=== PATIENT | male | born 1965 | race Caucasian/White ===

== ENCOUNTER 2019-10-21 11:42 | Inpatient (IN) | payer SELFPAY ==
[~2019-10-21] VITALS: Ht 175.3 cm; Wt 69.5 kg
[2019-10-21 12:12] LABS: BASO # 0.1 (0.0-0.2); BASO % 1.2 % (0.0-2.0); EOS % 0.2 % (0-4.0); GRAN # 1.8 (1.4-6.5); GRAN % 43.3 % (42.2-75.2); HEMATOCRIT 40.8 % (42.0-52.0); HEMOGLOBIN 13.8 g/dl (13.5-18.0); LYMPH # 1.6 (1.2-3.4); LYMPH % 39.6 % (20.0-51.0); MEAN CELL VOLUME 99 fl (80.0-100.0); MEAN CORPUSCULAR HEMOGLOBIN 33 pg (27.0-31.0); MEAN CORPUSCULAR HGB CONC 34 g/dl (33.0-37.0); MEAN PLATELET VOLUME 12.6 fl (7.4-10.4); MONO # 0.7 (0.1-0.6); MONO % 15.7 % (1.7-9.3); PLATELET COUNT 80 K/mm3 (130-400); RED BLOOD COUNT 4.13 M/mm3 (4.20-5.60); REDCELL DISTRIBUTION WIDTH-CV 12.8 % (11.5-14.5)
[2019-10-21 12:46] LABS: ALANINE AMINOTRANSFERASE 167 U/L (4-49); ALBUMIN 3.5 gm/dL (3.5-5.0); ALKALINE PHOSPHATASE 75 U/L (50-136); ANION GAP 5 mmol/L (7-16); AST,SGOT 146 U/L (15-37); BILIRUBIN,TOTAL 0.9 mg/dL (0.0-1.0); BLOOD UREA NITROGEN 22 mg/dL (9-20); CALCIUM 8.8 mg/dL (8.4-10.2); CARBON DIOXIDE 28 mmol/L (22-30); CHLORIDE 106 mmol/L (98-107); CREATININE, serum 0.74 (0.66-1.25); GLUCOSE 94 mg/dL (74-106); SODIUM 139 mmol/L (137-145); TOTAL PROTEIN 7.5 gm/dL (6.4-8.2)
[2019-10-21 12:47] LABS: C-REACTIVE PROTEIN < 0.5 mg/dL (0.0-0.9)
[2019-10-21 13:06] LABS: ERYTHROCYTE SEDIMENTATION RATE 7 mm/hr (0-30)
[2019-10-21 14:23] LABS: CREATINE KINASE 198 U/L (55-170)
[2019-10-21 14:30] LABS: ALCOHOL(ethanol),MEDICAL < 10 mg/dL
[2019-10-21 18:52] VITALS: BP 152/82; PULSE 55; TEMP 97.9
[2019-10-22] VITALS (7 sets, daily range): BP systolic 123–149; BP diastolic 77–88; PULSE 54–79; TEMP 97.6–98
[2019-10-22 03:05] LABS: COLLECTION METHOD CLEAN CATCH
[2019-10-22 03:27] LABS: MUCOUS Present /lpf; PH 6 (5-8); SQUAMOUS EPITHELIAL 0-2 /hpf; TRICYCLIC ANTIDEPRESS URINE NEGATIVE; URINE APPEARANCE Clear; URINE BACTERIA None Seen /hpf; URINE BILIRUBIN Negative (NEGATIVE); URINE BLOOD Negative (NEGATIVE); URINE COLOR Yellow; URINE GLUCOSE Negative (NEGATIVE); URINE KETONE Negative (NEGATIVE); URINE LEUKOCYTE ESTERASE Negative (NEGATIVE); URINE NITRATE Negative (NEGATIVE); URINE PROTEIN(semi-quant) Negative (NEGATIVE); URINE RBC 0-2 /hpf; URINE UROBILINOGEN >=4.0 mg/dL (NEGATIVE)
--- NOTE | 2019-10-22 05:10 | NUR ---
Patient has rested well throughout the night. Noted to be very drowsy and wakes to physical stimuli. Alert and oriented. States pain with touch to bilateral upper arms. Hand soda dry house operator are equal, but patient has a hard time making a fist on both sides. Feels very rigid. Complains of pain to middle of his lower back. States spasm and tingling in bilateral legs. Utilizes urinal at bedside. Urine sample sent to lab for analysis. Patient states, "Are you going to test that for poison? I think someone is trying to poison me." Patient educated that we were checking multiple things in his urine. IVF continue to right forearm. Will continue to monitor.
--- NOTE | 2019-10-22 09:50 | NUR ---
Dr Monk notified of consult.
--- NOTE | 2019-10-22 09:52 | NUR ---
Patient alert and oriented, answers questions appropriately. See assessment. C/o numbness, tingling and inability to contol bilateral hands. Hand residential remodeling subcontractor weak but equal, pulses palpable. C/o numbness and tingling to bilateral feet, pulses palpable. Able to dorsiflex and plantar flex bilateral feet, strength even. C/o generalized weakness, states "I think I might have gotten some poison." No other c/o at this time.
--- NOTE | 2019-10-22 12:27 | NUR ---
Dr Monk here to see patient.
[2019-10-22 13:22] LABS: BASO % 0.9 % (0.0-2.0); EOS # 0.1 (0.0-0.7); EOS % 1.3 % (0-4.0); GRAN # 2.5 (1.4-6.5); GRAN % 55.2 % (42.2-75.2); HEMATOCRIT 44.2 % (42.0-52.0); HEMOGLOBIN 14.7 g/dl (13.5-18.0); LYMPH # 1.3 (1.2-3.4); LYMPH % 28.5 % (20.0-51.0); MEAN CELL VOLUME 100 fl (80.0-100.0); MEAN CORPUSCULAR HEMOGLOBIN 33 pg (27.0-31.0); MEAN CORPUSCULAR HGB CONC 33 g/dl (33.0-37.0); MEAN PLATELET VOLUME 13.7 fl (7.4-10.4); MONO # 0.6 (0.1-0.6); MONO % 13.9 % (1.7-9.3); PLATELET COUNT 71 K/mm3 (130-400); RED BLOOD COUNT 4.43 M/mm3 (4.20-5.60); REDCELL DISTRIBUTION WIDTH-CV 12.7 % (11.5-14.5)
[2019-10-22 13:28] LABS: ALBUMIN 3.3 gm/dL (3.5-5.0); BILIRUBIN,TOTAL 0.7 mg/dL (0.0-1.0); CREATININE, serum 0.67 (0.66-1.25); POTASSIUM 3.8 mmol/L (3.4-5.0); TOTAL PROTEIN 7.4 gm/dL (6.4-8.2)
[2019-10-22 13:31] LABS: INR 1.1 (0.8-3.0); PROTHROMBIN TIME 11.8 SECONDS (9.7-12.8)
[2019-10-22 19:20] LABS: HIV 1/2 Antibodies Non-Reactive; HIV-1p24 Antigen Non-Reactive
[2019-10-23 04:00] VITALS: BP 135/91; PULSE 57; TEMP 97.6
--- NOTE | 2019-10-23 04:51 | NUR ---
Patient has been restless this shift. Complains of back pain. PRN Tylenol administered with no relief. Heat pack to back and he states this has been most helpful. Verbalizes his frustration with not being able to move and being too weak to get things on his bedside table. Patient noted to be very weak and calls to request change in position every 30 minutes. Assist x2 staff required. The heat pack has helped patient settle that he goes a couple hours in between calling for repositioning. Continues to complain of a tingling sensation over entire body. Patient was able to eat his dinner slowly, but independently. Will continue to monitor patient.
[2019-10-23 08:09] LABS: ALBUMIN 3.2 gm/dL (3.5-5.0); BILIRUBIN,TOTAL 0.8 mg/dL (0.0-1.0); CALCIUM 8.3 mg/dL (8.4-10.2); CREATININE, serum 0.66 (0.66-1.25); TOTAL PROTEIN 7.3 gm/dL (6.4-8.2)
[2019-10-23 08:13] LABS: BASO % 0.9 % (0.0-2.0); EOS % 0.6 % (0-4.0); GRAN # 2.9 (1.4-6.5); GRAN % 61.4 % (42.2-75.2); HEMATOCRIT 45.3 % (42.0-52.0); HEMOGLOBIN 15.2 g/dl (13.5-18.0); LYMPH # 1.2 (1.2-3.4); LYMPH % 25.6 % (20.0-51.0); MEAN CELL VOLUME 98 fl (80.0-100.0); MEAN CORPUSCULAR HEMOGLOBIN 33 pg (27.0-31.0); MEAN CORPUSCULAR HGB CONC 34 g/dl (33.0-37.0); MEAN PLATELET VOLUME 13.4 fl (7.4-10.4); MONO # 0.5 (0.1-0.6); MONO % 11.3 % (1.7-9.3); PLATELET COUNT 77 K/mm3 (130-400); RED BLOOD COUNT 4.63 M/mm3 (4.20-5.60); REDCELL DISTRIBUTION WIDTH-CV 12.7 % (11.5-14.5)
[2019-10-23 08:14] VITALS: BP 123/87; PULSE 62; TEMP 97.7
--- NOTE | 2019-10-23 09:55 | NUR ---
Patient alert and oriented, answers questions appropriately. See assessment. C/o bilateral upper extremity weakness, pulses palpable. Hand keno manager equal but weak, able to manipulate silverware for eating. C/o BLE weakeness, pulses palpable. Plantar and dorsiflexion present and strong. Assist x2 for transfers. Able to move self in bed. C/o neck and mid back pain. No other c/o at this time.
--- NOTE | 2019-10-23 11:12 | NUR ---
SW met with patient to complete intake. Patient provides that he lives in [place], [place] with is sister Kaelyn Agosto [phone]. Patient states that he did not utilize a walker before entering the hospital, but has had to use one since being here, he also states that he did not need any assistance with ADL's previously, and does not know if he will need any assistance when he discharges. Patient states that he does not have a PCP at this time. Patient appointed sister Kaelyn Agosto has DPOA-HC. SW presented documentation for DPOA-HC, it was reviewed, explained in detail, signed by patient, witnessed signature by hospital staff, copies provided to patient and original document placed in chart. Patient states that he does not know if he will need any assistance at this time when dcing back to his sisters home. SW provided information that SW staff is here to assist with any needs upon dc and will assist in setting up services if needed. SW will continue to follow.
[2019-10-23 12:00] VITALS: BP 131/78; PULSE 51; TEMP 98.4
--- NOTE | 2019-10-23 13:55 | NUR ---
Dr Monk here to see patient.
--- NOTE | 2019-10-23 15:56 | NUR ---
FVC 3.22 3.50 4.69 good patient effort
[2019-10-23 16:21] VITALS: BP 139/84; PULSE 51; TEMP 98.7
[2019-10-23 20:00] VITALS: BP 136/94; PULSE 70; TEMP 98.3
[2019-10-24] VITALS (10 sets, daily range): BP systolic 118–152; BP diastolic 69–84; PULSE 53–78; TEMP 97.7–98.5
--- NOTE | 2019-10-24 05:00 | NUR ---
Patient continues to present with weakness to all extremities with jerking movements. Patient states a numbness feeling across abdomen and alternates between bilateral arms throughout the night. Patient wanted assistance in getting up to the commode. Noted to sit up on the side of the bed with no assist from staff, however movements were jerky and not very coordinated. Assist from staff x2 for transfers. Able to roll independently in the bed. Utilizes urinal for urination with assist from staff. Unable to feed himself d/t jerky movements. Patient alert and oriented. Complains of pain to back and neck throughout the night. PRN Tylenol administered. Patient has been NPO since midnight in preparation for MRI and spinal tap this morning. Will continue to monitor patient.
[2019-10-24 11:44] LABS: GLUCOSE,CSF 48 mg/dL (40-70)
[2019-10-24 12:14] LABS: TOTAL PROTEIN,CSF 104 mg/dL (15-45)
[2019-10-24 13:35] LABS: CSF APPEARANCE CLEAR; CSF COLOR COLORLESS; CSF RBC 5 /mm3 (0-0)
--- NOTE | 2019-10-24 13:38 | NUR ---
PT PERFORMED VC WITH WRIGHTS SPIROMETER AT THIS TIME. VC=3.54,3.40,3.50 PT WAS SITTING UPRIGHT IN BED AND GAVE GOOD PT EFFORT. NO DISTRESS NOTED. SPO2 98% ON ROOM AIR, HR 61, RR 17.
[2019-10-24 13:40] LABS: CSF POLYMORPHONUCLEAR 0 % (0-6)
[2019-10-24 13:41] LABS: CSF MONONUCLEAR 100 % (70-100)
--- NOTE | 2019-10-24 16:29 | NUR ---
MARIANN received a phone call from Mely, Pe Teacher at [facility]. Mely requested the patient's records. MARIANN faxed the records to Mely.
--- NOTE | 2019-10-24 20:05 | NUR ---
[facility] called at this time for report on pt. Report given to ALEX Hogue. Pt. will be going to Neuro unit room 6. supervisor cell efficiency notified of room.
--- NOTE | 2019-10-24 21:00 | NUR ---
[facility] here at this time. Pt. given 1 oxycodone 5 mg at this time. Paperwork sent with EMS. Pt. transfered to [facility] with 3 assist. Pt. sent to [facility].
[2019-10-25 18:24] LABS: CADMIUM BLOOD 0.7 ng/mL (<5.0); LEAD,SERUM** 4.7 mcg/dL (<5.0); MERCURY,SERUM 3 ng/mL (<10)
[2019-10-26 11:10] LABS: HSV 2 DNA PCR QUAL Not Detected (())
== END 2019-10-24 21:00 | disposition short-term general hospital (02) | DRG 551 ==
LOC: COL.ER 11:42 → JCC 14:42 → SURG 17:09
PROVIDERS: Emergency Medicine; Physician Assistant; Psychiatry & Neurology Neurology
DX: M48.02 Spinal stenosis, cervical region (principal); G82.50 Quadriplegia, unspecified; G95.89 Other specified diseases of spinal cord; F17.210 Nicotine dependence, cigarettes, uncomplicated; M48.061 Spinal stenosis, lumbar region without neurogenic claudication; D69.6 Thrombocytopenia, unspecified; F12.90 Cannabis use, unspecified, uncomplicated; B19.20 Unspecified viral hepatitis C without hepatic coma; J44.9 Chronic obstructive pulmonary disease, unspecified
CPT/HCPCS: 87522; 99232-AI; 99233-AI; 99239; A9585; G0378; J1569; J1885; J2405; J2930; J3010; J7030

== ENCOUNTER 2023-09-11 13:13 | Inpatient (IN) | payer MEDICARE ==
[~2023-09-11] VITALS: Ht 165.1 cm; Wt 74.6 kg
[2023-09-11] MEDS ORDERED: TYLENOL 500MG500 MG PO (14:56)
[2023-09-11] MEDS ORDERED: LIORESAL 1010 MG/TAB PO (14:58)
[2023-09-11] MEDS ORDERED: Polyethylene Glycol 3350 17 GM PDS PO PRN (15:00)
[2023-09-11] MEDS ORDERED: Sennosides/Docusate 8.6-50 MG TAB PO PRN (15:00)
[2023-09-11] MEDS ORDERED: Docusate Sodium 100 MG CAP PO PRN (15:00)
[2023-09-11] MEDS ORDERED: Naloxone 0.4 MG/ML VIAL IV PRN (15:00)
[2023-09-11] MEDS ORDERED: ENTRESTO 49 MG1 EACH PO (15:08)
[2023-09-11] MEDS ORDERED: LIDODERM 5% PATC1 EA TP (15:08)
[2023-09-11] MEDS ORDERED: LASIX 20MG TABL20 MG PO (15:08)
[2023-09-11] MEDS ORDERED: FARXIGA10 PO (15:08)
[2023-09-11] MEDS ORDERED: NEURONTIN300 MG/CAP PO (15:09)
[2023-09-11] MEDS ORDERED: CIALIS20 MG PO (15:10)
[2023-09-11] MEDS ORDERED: PROAIR HFA0.09 MG/AC IH (15:10)
[2023-09-11] MEDS ORDERED: oxyCODONE 5 MG TAB PO PRN ×2 (15:15→15:30)
[2023-09-11] MEDS ORDERED: Albuterol 0.083% Neb Soln 2.5 MG/3 ML UD IH PRN (15:15)
[2023-09-11] MEDS ORDERED: Acetaminophen 500 MG TAB PO SCH (15:15)
[2023-09-11] MEDS ORDERED: oxyCODONE 5 MG TAB PO ONE ×2 (15:30)
[2023-09-11] MEDS ORDERED: Heparin 5,000 UNITS/ML 1 ML VIAL SQ SCH (16:11)
[2023-09-11] MEDS ORDERED: Glucagon 1 MG VIAL IM PRN (16:30)
[2023-09-11] MEDS ORDERED: Dextrose 50% Water 25 GM/50 ML SYRINGE IV PRN (16:30)
[2023-09-11] MEDS ORDERED: Dextrose (Glucose) 15 GM (4 x 3.75 GM) Chewable TABLET PACK PO PRN (16:30)
[2023-09-11] MEDS ORDERED: Baclofen 10 MG TAB PO SCH (17:00)
[2023-09-11] MEDS ORDERED: Gabapentin 300 MG CAP PO SCH (17:00)
[2023-09-11] MEDS ORDERED: Insulin Lispro (HumaLOG) SQ SCH (17:00)
[2023-09-11 18:59] VITALS: BP 122/66; PULSE 61; TEMP 98
[2023-09-11 20:14] VITALS: BP_SYST 122
--- NOTE | 2023-09-11 20:17 | NUR ---
PATIENT IS RESTING IN BED REPORTING PAIN IN NECK 9/10. HE IS EXPRESSING FRUSTRATION OVER HIS PAIN AND IS CONFUSED ABOUT HIS MEDICATION SCHEDULE. RN EDUCATED HIM ON HIS PRN AND SCHEDULED MEDICATIONS, INCLUDING THAT PRN MEDICATIONS ARE ONLY NEEDED AND THAT HIS PRN PAIN MEDICATION CANNOT BE GIVEN UNTIL THE ORDERED AMOUNT OF TIME HAS PASSED. ASSISTED PATIENT WITH REPOSITIONING AND LET HIM KNOW THAT THIS RN WOULD RETURN AT 2100 WITH HIS BEDTIME MEDICATIONS. CALL LIGHT IS WITHIN REACH. BED IS LOCKED AND IN LOW POSITION.
[2023-09-11] MEDS ORDERED: Polyethylene Glycol 3350 17 GM PDS PO SCH (21:00)
[2023-09-11 23:04] VITALS: BP 111/68; PULSE 56; TEMP 98.1
[2023-09-12 05:29] VITALS: BP 128/74; PULSE 58; TEMP 97.7
[2023-09-12 06:35] VITALS: BP_SYST 128
--- NOTE | 2023-09-12 06:35 | NUR ---
Pt sleeping in bed. Call light in reach and bed alarm on.
--- NOTE | 2023-09-12 08:10 | NUR ---
Pt sitting up in chair. Finished breakfast. A&Ox4. VSS. S1S2. Clear lungs on RA. ABD round, soft, non-tender with audible bowel sounds. Palpable pulses in all extremities. Pt reports 9/10 pain in back and neck. Administered pain meds as prescribed. Pt denies headache, dizziness. Pt states he has not had a BM since being here. Educated Pt on side effects of pain meds - constipation. Lidocaine patch placed on incision on back. Pt has skin tear on L shoulder - placed mepilex pad for cushioning from [place] collar. R shoulder has some redness and irritation, but skin intact. Placed mepilex pad for cushioning. Pt denies further needs. Call light in reach and chair alarm on.
[2023-09-12] MEDS ORDERED: Lidocaine 4% Topical Patch TP SCH (09:00)
--- NOTE | 2023-09-12 11:00 | NUR ---
SW met with patient to complete intake. Patients provides he lives in [facility]. Point of contact is son Enrique Moran [phone] and daughter in law Sophia Moran [phone]. Patient states that he does utilize a cane and is independent with ADL's, PCP is Dr. Rios, and pharmacy is [facility]. Patient provides he does not utilize home health services at this time. Patient provides he does not have anyone appointed as DPOA-HC at this time and did not wish to appoint anyone at this time. Patient provides he plans to return to his home upon discharge. SW will continue to follow. Discharge plan: home/PT OT rec to be determined
--- NOTE | 2023-09-12 11:27 | NUR ---
Pt back from group therapy. Pt is drowsy but responds to call commands appropriately. Pt reports pain in neck is 7/10. Pt ambulated to bed with minimal assistance from nurse once standing. Bed alarm on and call light in reach.
--- NOTE | 2023-09-12 12:51 | NUR ---
Data: COMMUNICATIONS EDITOR reported to Agronomy Technician that Patient had been extremely aggitated this morning and using vulgar language. Patient accepted spiritual care visit offered during Agronomy Technician rounds. Patient stated that this is his third neck surgery. He is tired and in Pain. The neck surgeries prevent him from having the more active life he would want to have. Patient accepted prayer. Assessment: Patient is in pain. Patient feels isolated/alone. Plan of Care: Agronomy Technician provided supportive listening and prayer, specifically for pain and isolation. Patient requested "something to wipe my eyes" so Agronomy Technician provided tissues. Agronomy Technician adjusted lighting in room to help Patient to fall to sleep easier. Chaplains will remain available as needed/requested while Patient is admitted to this hospital.
--- NOTE | 2023-09-12 13:20 | NUR ---
Pt ambulated back from restroom to bed. Pt states pain 7/10 in neck/back. Pt stated it is tolerable for now, Pt believes he is going to try to sleep. No further needs. Call light in reach and bed alarm on.
--- NOTE | 2023-09-12 13:45 | NUR ---
Pt called out reporting shortness of breath. Pt laying down upon entering room, in bed. Pt taking shallow breathes. Pt declines pain when breathing. Lungs are clear. Pulse ox: 92%. Pt states felt like something in his throat coughed phlegm up. Pt states better. Pulse ox: 98%. Repositioned Pt in bed. Call light in reach and bed alarm on.
[2023-09-12 18:59] VITALS: BP 126/75; PULSE 63; TEMP 98.1
[2023-09-12 19:56] VITALS: BP_SYST 126
--- NOTE | 2023-09-12 20:36 | NUR ---
PATIENT IS SITTING IN RECLINER WATCHING TV. EXPRESSING FRUSTRATION PERTAINING TO FREQUENCY OF HIS PAIN MEDICATION. REPORTS NECK PAIN 9/10. HE IS REQUESTING TO HAVE HIS LAUNDRY DONE. DENIES ANY NUMBNESS OR TINGLING IN HIS UPPER EXTREMITY, ALSO DENIES ANY DIFFICULTY SWALLOWING OR BREATHING. CALL LIGHT IS WITHIN REACH. CHAIR ALARM ON.
[2023-09-13 05:26] VITALS: BP 132/58; PULSE 80; TEMP 97.9
[2023-09-13 07:19] VITALS: BP_SYST 132
--- NOTE | 2023-09-13 10:11 | NUR ---
PT SITTING UP IN CHAIR, ALERT AND ORIENTEDX4. RATES PAIN 10/10. PT REQUESTED PAIN PILL. AFTER PAIN PILL PAIN IS 7/10. ASSESSED AND GAVE MORNING MEDS. TOOK OFF YESTERDAYS LIDOCAINE PATCH AND PUT NEW ON ONE BACK OF KNECK. ASPEN COLLAR ON WHILE SITTING IN CHAIR. NO OTHER COMPLAINTS AT THIS TIME. CALL LIGHT WITHIN REACH.
[2023-09-13 18:03] VITALS: BP 120/75; PULSE 73; TEMP 97.4
[2023-09-13 19:20] VITALS: BP_SYST 120
--- NOTE | 2023-09-13 20:14 | NUR ---
Pt alert and oriented x4, assisted from recliner to bathroom with gait belt and fww, pt experianced bowel urgency and didnt quite make it to bathroom on time. Miralax held pants and socks changed, rating pain 10/10 in head and neck, pain meds administered per orders. Assessed and all HS meds given, back in header setup operator and says he is comfortable after pillows adjused. Chair alarm engaged, IV to LF patent. Call light within reach.
[2023-09-14 06:00] VITALS: BP 150/86; PULSE 60; TEMP 98.3
[2023-09-14 07:00] VITALS: BP_SYST 150
--- NOTE | 2023-09-14 09:00 | NUR ---
PATIENT A&O X4. VSS. C/O PAIN AND REQUESTED OPIOIDS WHEN DUE AGAIN. EDUCATED ON TIMES OPIOIDS CAN BE GIVEN TODAY. NO C/O N/V. SHIFT ASSESSMENT COMPLETE. REPLACED MEPILEX ON R SHOULDER. COLLAR ON PATIENT. TRANSFERS WITH ASSIST X1 WITH WALKER. FALL PRECAUTIONS IN PLACE. CALL LIGHT AND PERSONAL BELONGINGS WITHIN REACH. NO FURTHER NEEDS AT THIS TIME.
--- NOTE | 2023-09-14 11:33 | NUR ---
PATIENT ALERT AND ORIENTED X4. VSS. PATIENT HERE FOR REHAB S/P CERVICAL FUSION. ASPEN COLLAR ON. PATIENT REPORTS PAIN 9/10, REQUESTS PAIN MEDICATION WHEN DUE FOR PRN MEDS. PATIENT ABLE TO FEED SELF WITH ASSISTANCE. PATIENT ON RA. NO FURTHER NEEDS. CALL LIGHT IN REACH. CHAIR ALARM ON.
--- NOTE | 2023-09-14 14:10 | NUR ---
forming process line worker met with pt to check-in and introduce herself. Pt reports concerns with nursing staff and expressed how he was incontinent many times with no assistance in timely matter and felt disrespected. SW informed him she will discuss with IPR Director Candida who will come check-in with him too. Pt was agreeable to this solution. He reports waiting for the DrNorma to come around to discuss his pain. Pt started to discuss how he uses "street drugs" then SW inquired about this further and if he wanted resources, he then says he uses marijuana and his surgeon approved this. Pt went on to express he would like to discharge home and just needs assistance with his dishes. He reports [facility] list for over 2 years. SW discussed private duty options and he states he cannot afford this and his family all works a lot. He reports being dissatisfied that his neice tried to charge him $30 an hour. Pt did confirm his home is in livable condition and he still maintains it. SW advised they can follow-up on a later date about any other options. Discharge Plan: re-eval
--- NOTE | 2023-09-14 15:22 | NUR ---
Admission QIM scores were reviewed by the team. Code of 2 chosen for toileting hygiene was determined by team discussion to be the most usual performance for this patient during the discharge assessment period.--PD Osman
--- NOTE | 2023-09-14 16:09 | NUR ---
MARIANN called [facility] to see where pt was on the home care program waitlist. MARIANN spoke with Kim who reports pt should have received a letter from [facility] to accept assistance. She could not confirm any other details and advised MARIANN to call [facility]. MARIANN called [facility] [phone] to discuss pt's letter and status as he is in the hospital. Voicemail left.
[2023-09-14 17:09] VITALS: BP 141/79; PULSE 42; TEMP 98.5
[2023-09-14 19:28] VITALS: BP_SYST 141
--- NOTE | 2023-09-14 19:28 | NUR ---
RECEIVED CHANGE OF SHIFT REPORT FROM DAY SHIFT NURSE. PATIENT UP IN CHAIR, ASPEN COLLAR IN PLACE. CALL LIGHT WITHIN PATIENT'S REACH WITH EXIT ALARM ON. NO NEEDS VOICED AT TIME OF REPORT.
--- NOTE | 2023-09-14 22:10 | NUR ---
PATIENT WANTS TO TAKE HS MEDS WITH PAIN MEDICATION NEXT AVAILABLE AT 2230. UP TO BATHROOM WITH X1 ASST WITH WEAK BUT STEADY GAIT. EXIT ALARM ON WHEN BACK TO IN CHAIR, REFUSED TO LAY IN BED REPORTING THAT HE IS UNCOMFORTABLE LAYING IN HOSPITAL BED AT THIS TIME. CALL LIGHT WITHIN PATIENT'S REACH.
--- NOTE | 2023-09-15 01:07 | NUR ---
PATIENT UP IN CHAIR, RESTING WITH EYES CLOSED AND EVEN/NONLABORED BREATHING. DID NOT WAKE DURING NURSE ROUNDING INITIALLY, WHEN AWAKE, REQUESTED PAIN MEDICATION WHEN NEXT AVAILABLE, REQUESTING TO BE WOKEN UP FOR DOSING. EXIT ALARM ON, CALL LIGHT WITHIN PATIENT'S REACH.
--- NOTE | 2023-09-15 02:37 | NUR ---
REQUESTED AND GIVEN PAIN MEDS, SEE MAR FOR MEDICATION GIVEN. NO OTHER NEEDS REPORTED AT THIS TIME.
[2023-09-15 05:09] VITALS: BP 146/72; PULSE 56; TEMP 98.2
--- NOTE | 2023-09-15 07:03 | NUR ---
CHANGE OF SHIFT REPORT GIVEN TO DAY SHIFT NURSEKIERAN. PATIENT UP IN CHAIR, RESTING, EXIT ALARM ON, CALL LIGHT WITHIN PATIENT'S REACH.
[2023-09-15 07:05] VITALS: BP_SYST 146
[2023-09-15] MEDS ORDERED: Lidocaine 5% Ointment 35.44 GM TUBE TP SCH (09:00)
--- NOTE | 2023-09-15 09:49 | NUR ---
PATIENT ALERT AND ORIENTE X4. VSS. PATIENT HERE FOR REHAB R/T S/P NECK FUSION. ASPEN COLLAR APPLIED. INCISIONS CDI. IV DC'D THIS AM. AM MEDS ADMINISTERED. PATIENT REPORTS PAIN 11/02, REQUESTS PRN MEDS WHEN DUE. PATIENT TOLERATING PO. NO FURTHER NEEDS. CALL LIGHT IN REACH CHAIR ALARM ON.
[2023-09-15] MEDS ORDERED: oxyCODONE 5 MG TAB PO SCH (10:30)
[2023-09-15 16:49] VITALS: BP 131/65; PULSE 50; TEMP 98.4
--- NOTE | 2023-09-15 19:09 | NUR ---
RECEIVED CHANGE OF SHIFT REPORT FROM DAY SHIFT NURSE.
[2023-09-15 19:16] VITALS: BP_SYST 131
--- NOTE | 2023-09-16 03:40 | NUR ---
PATIENT CONTINUES ON SCHEDULED OXYCONTIN ORDERED, STILL REPORTS PAIN OF LEVEL 8-9/10 DURING THE NIGHT WHEN PATIENT IS AWAKENED FOR DOSING. PATIENT LAID IN BED FOR PART OF NIGHT REPORTING THAT HE WAS UNCOMFORTABLE DUE TO CONCERNS THAT HIS HEAD WOULD ROLL OFF PILLOW "I USUALLY SLEEPING ON MY SIDE" WHILE ASPEN COLLAR IS OFF. PATIENT UP IN RECLINER CHAIR CURRENTLY AND SLEEPING WHILE SITTING UP IN RECLINER. UP TO BATHROOM INTERMITTANTLY TO VOID. OBSERVED HAS PASSED SEMIFORMED BROWN STOOL OF SMALL AMOUNTS WHEN UP TO VOID, PATIENT STATING THAT HE COULD NOT TELL IF HE HAD PASSED STOOL AT THE TIME. DENIES ABD PAIN/NAUSEA. DENIED CHEST PAIN/SHORTNESS OF BREATH. EXIT ALARM ON WHEN UP IN CHAIR, CALL LIGHT WITHIN PATIENT'S REACH.
[2023-09-16 05:19] VITALS: BP 147/65; PULSE 52; TEMP 98.1
--- NOTE | 2023-09-16 07:16 | NUR ---
CHANGE OF SHIFT REPORT GIVEN TO DAY SHIFT NURSES, OLI.
[2023-09-16 07:45] VITALS: BP_SYST 147
--- NOTE | 2023-09-16 15:31 | NUR ---
medical office worker attended team conference meeting and informed pt will be a re-eval to next week, but he is feeling like he wants to discharge sooner due to having done similar rehab interventions before. Tenative date was set for 09/23 to help assist pt with a goal date. SW was informed pt will need a family meeting scheduled for Thursday or Thursday 9:30a/1pm. SW met with pt to provide team conference notes and see if he was agreeable to the above date. He was agreeable and understood that the DrNorma would like to continue to manage his pain and continue with rehab. SW discussed family meeting for next week. Pt reports his [id number] had surgery & her works 11-7pm. SW encouraged him to talk with them and see if they would be interested. Pt was agreeable to this. SW discussed how she spoke with Robina VARGAS regarding his in home waiver. SW advised she is waiting for the physical digital publishing specialist to call her back further to discuss if the letter of notification was mailed out. Pt was open to MARIANN continually working on this. Pt went on to express concerns with losing his Medicaid and they lost his electronic signature and he is worried about bills from [employer] up. SW inquired if he was open to the financial counselor looking into this. He reports agreement. Pt informs SW he has not had home health before, but is open to it upon discharge. SW contacted financial administration officerJudi to check on pt's Medicaid. MARIANN spoke with Robina VARGAS who advised they will pass a message to the physical digital publishing specialist regarding the status. Discharge Plan: re-eval
[2023-09-16 18:20] LABS: HEMOGLOBIN 10.1 g/dl (13.5-18.0); MEAN CELL VOLUME 102 fl (80.0-100.0); MEAN CORPUSCULAR HEMOGLOBIN 35 pg (27-31); MEAN CORPUSCULAR HGB CONC 35 g/dl (33.0-37.0); MEAN PLATELET VOLUME 12.5 fl (7.4-10.4); PLATELET COUNT 80 K/mm3 (130-400); RED BLOOD COUNT 2.88 M/mm3 (4.20-5.60)
[2023-09-16 18:23] LABS: HEMATOCRIT 29.3 % (42.0-52.0)
[2023-09-16 18:28] VITALS: BP 133/79; PULSE 65; TEMP 98.5
[2023-09-16 18:31] LABS: CALCIUM 8.8 mg/dL (8.4-10.2); CREATININE, serum 0.87 mg/dL (0.72-1.25); POTASSIUM 4.3 mEq/L (3.5-4.5)
[2023-09-16 18:51] LABS: ANISOCYTOSIS 1+; BAND 4 % (0-10); EOSINOPHIL 2 % (0-4); HYPOCHROMIA 1+; LYMPHOCYTE 13 % (20.0-51.0); NEUTROPHILS 56 % (42.0-75.2); PLATELET ESTIMATE DECREASED (NORMAL); POLYCHROMASIA 1+
[2023-09-16 18:52] LABS: STOMATOCYTE 1+; TARGET CELLS 1+
[2023-09-16 19:30] VITALS: BP_SYST 133
--- NOTE | 2023-09-16 19:30 | NUR ---
RECEIVED CHANGE OF SHIFT REPORT FROM DAY SHIFT NURSE.
--- NOTE | 2023-09-16 20:00 | NUR ---
PATIENT UP IN ROOM WITH ASSIST X1 WITH GAIT BELT AND FWW. PATIENT REPORT SOME PAIN CONTROL WITH SCHEDULED OXYCONTIN, TYLENOL AND LIDOCAINE CREAM, REPORTS DOES NOT HAVE LIDOCAINE PATCH ON DUE TO HAVING LIDOCAINE CREAM APPLIED SCHEDULED. DENIES CHEST PAIN/SHORTNESS OF BREATHE/NAUSEA AT THIS TIME. REPORTS HAS HAD BM TODAY, DOES NOT WANT STOOL SOFTENER SCHEDULED AT HS. ASPEN COLLAR IN PLACE/INTACT. OBSERVED DECREASED LEFT HAND DEXTERITY BUT IS ABLE TO USE DRINKING CUP WITH HANDLE, WITH LEFT HAND THUMB AND PARTIAL LEFT HAND GRASP (DUE TO BUE/HAND GRASP WEAKNESS). EXIT ALARMS ON WHEN EITHER IN BED OR UP IN RECLINER CHAIR, PATIENT CURRENTLY RESTING IN BED WITH EYES CLOSED.
[2023-09-16] MEDS ORDERED: Melatonin 3 MG TAB PO SCH (21:00)
--- NOTE | 2023-09-17 00:03 | NUR ---
PATIENT RESTING WITH EYES CLOSED SITTING UP IN RECLINER. BREATHING EVEN AND NONLABORED. REFUSED MIRALAX WITH HS MEDS THIS SHIFT. DENIES CHEST PAIN/SHORTNESS OF AIR/NAUSEA. REPORTED HAD BM TODAY. ASPEN COLLAR IN PLACE. CONTINUES ON ROOM AIR.
[2023-09-17 05:47] VITALS: BP 124/80; PULSE 37; TEMP 98
[2023-09-17 06:45] VITALS: BP_SYST 124
--- NOTE | 2023-09-17 07:15 | NUR ---
0645 - Pt awake, sitting up in chair. Pt does not complain of pain at this time. No other concerns at this time. Call light within reach. Chair alarm set.
--- NOTE | 2023-09-17 09:09 | NUR ---
0815 - Pt awake, sitting up in chair for morning assessment and med pass. Pt complains of pain in neck at this time. Pt states that staff are not "bringing medications on time." This nurse provided education to pt regarding the times of his medications that are scheduled, informing him that according to the MAR, medications have been given appropriately thus far. No other concerns at this time. Call light within reach. Chair alarm set.
--- NOTE | 2023-09-17 10:06 | NUR ---
rigging up worker was informed by financial writerJudi pt does not have active Medicaid. She reports he does had a medicare supplemental plan to aid with premiums. She confirmed she will meet with pt to assist in re-applying for Medicaid. Discharge Plan: re-eval
[2023-09-17] MEDS ORDERED: Pregabalin 150 MG CAP PO SCH (14:00)
[2023-09-17 18:18] VITALS: BP 114/64; PULSE 62; TEMP 98.3
[2023-09-17 19:00] VITALS: BP_SYST 114
--- NOTE | 2023-09-17 20:35 | NUR ---
Patient sitting up in chair very upset. Patient states, "I want to know the names of everyone who has answered the call light because they are all getting reported tomorrow for lying to me." When explaining to patient that I was with another patient who needed my immediate assisstance and was unable to come back to his room any sooner than now, patient stated "I don't give a fuck. I'm leaving this place tomorrow anyway. I don't want to hear any excuses." This nurse appologized for not being able to come to patients room sooner and answer the few questions patient had and expressed that he was not being ignored and that it was just busy at the time. Answered patient question of when he could have his lidocaine cream and other pain meds. Assissted patient in taking medications and finishing ensure. Snack provided. Assessment complete. All needs met at this time. Call light and personal items in reach. Bed in low position and chair alarm on.
--- NOTE | 2023-09-17 23:00 | NUR ---
Offered patient bed bath. Patient accepted. Soaked feet and attempted to get skin off. Patient voiced he was very appreciative of this. Lotion applied to arms, legs, stomach, and back. New blankets and pillow cases provided.
[2023-09-18] MEDS ORDERED: diphenhydrAMINE 25 MG CAP PO PRN (01:45)
[2023-09-18 06:08] VITALS: BP 132/76; PULSE 35; TEMP 97.8
[2023-09-18 06:45] VITALS: BP_SYST 132
--- NOTE | 2023-09-18 07:14 | NUR ---
0645 - Report received. Pt asleep, sitting in chair comfortably. No concerns at this time. Chair alarm set. Call light within reach.
--- NOTE | 2023-09-18 09:39 | NUR ---
0811 - Pt sitting up in chair, eating breakfast at time of assessment and med pass. Assisted pt with eating remainder of meal at this time. Pt stating that he is wanting to leave and "needs a ride" to go home. Pt still cooperating with PT/OT at this time. Pt complains of 7/10 pain, scheduled pain medication administered at this time. Pt sitting up in chair with no facial grimacing, breathing unlabored. Pt states he is concerned about his medication ntresto, wanting to start that back up again. Will update physician during morning rounds. No other concerns at this time. Chair alarm set. Call light within reach.
[2023-09-18] MEDS ORDERED: Baclofen 10 MG TAB PO SCH (17:00)
[2023-09-18 18:26] VITALS: BP 131/80; PULSE 44; TEMP 98
[2023-09-18] MEDS ORDERED: DULoxetine 30 MG CAP PO SCH (21:00)
[2023-09-18] MEDS ORDERED: Sennosides/Docusate 8.6-50 MG TAB PO SCH (21:00)
--- NOTE | 2023-09-18 22:00 | NUR ---
PT A&O X4 SITTING IN CHAIR. VSS. PT REPORTS PAIN TO BACK OF NECK & SHOULDERS 11/02, GIVEN SCHEDULED PAIN MEDS PER APR. ASPEN COLLAR IN PLACE. ANTERIOR & POSTERIOR NECK INCISIONS WELL APPROX, TESSA INTACT TO POSTERIOR. SBA TO RESTROOM. PT DENYING FURTHER NEEDS. CALL LIGHT IN REACH
[2023-09-19 06:23] VITALS: BP 104/68; PULSE 51; TEMP 97.8
--- NOTE | 2023-09-19 06:30 | NUR ---
PT UP IN CHAIR WATCHING TV. RATES PAIN 7/10 THIS MORNING, GAVE SCHEDULED PAIN MEDS PER MAR. DENYING OTHER NEEDS. CALL LIGHTIN REACH
[2023-09-19 07:27] VITALS: BP_SYST 104
[2023-09-19 08:26] LABS: CALCIUM 8.5 mg/dL (8.4-10.2); CREATININE, serum 0.71 mg/dL (0.72-1.25); POTASSIUM 4.3 mEq/L (3.5-4.5)
[2023-09-19 08:29] LABS: HEMOGLOBIN 10.3 g/dl (13.5-18.0); MEAN CELL VOLUME 101 fl (80.0-100.0); MEAN CORPUSCULAR HEMOGLOBIN 34 pg (27-31); MEAN CORPUSCULAR HGB CONC 34 g/dl (33.0-37.0); PLATELET COUNT 99 K/mm3 (130-400); RED BLOOD COUNT 3.03 M/mm3 (4.20-5.60); REDCELL DISTRIBUTION WIDTH-CV 15.8 % (11.5-14.5)
[2023-09-19 08:30] LABS: HEMATOCRIT 30.7 % (42.0-52.0)
[2023-09-19] MEDS ORDERED: Empagliflozin 10 MG TAB PO SCH (09:00)
[2023-09-19] MEDS ORDERED: Dapagliflozin 10 MG **** subs to Empagliflozin 10 MG PO SCH (09:00)
[2023-09-19 09:20] LABS: ANISOCYTOSIS 1+; BAND 1 % (0-10); BASOPHIL 3 % (0-2); EOSINOPHIL 4 % (0-4); HYPOCHROMIA 1+; LYMPHOCYTE 15 % (20.0-51.0); NEUTROPHILS 48 % (42.0-75.2); PLATELET ESTIMATE DECREASED (NORMAL)
[2023-09-19 11:22] VITALS: BP 96/63; PULSE 64
--- NOTE | 2023-09-19 11:27 | NUR ---
Patient BP was soft this morning. It was rechecked for next dose of oxycodone. BP 96/63. Patient educated about the use of pain medications and risk to lower BP more. Pt states "if I do not get my medication I will leave this place". According to recs in EMAR ok to provide if SBP >90. Pain med given.
[2023-09-19 18:00] VITALS: BP 104/66; PULSE 53; TEMP 98.3
[2023-09-19 19:10] VITALS: BP_SYST 104
--- NOTE | 2023-09-19 21:00 | NUR ---
PT A&O X4 UP IN CHAIR. RATING PAIN 7-8/10, PT GETTING SCHEDULED OXYCODONE PER APR. ANTERIOR & POSTERIOR NECK INCISIONS INTACT & WELL APPROXIMATED. ASPEN COLLAR IN PLACE. PT DENYING FURTHER NEEDS. CALL LIGHT IN REACH & CHAIR ALARM ON
[2023-09-20 05:06] VITALS: BP 104/54; PULSE 45; TEMP 97.5
[2023-09-20] MEDS ORDERED: Ondansetron 4 MG TAB PO PRN (05:45)
--- NOTE | 2023-09-20 06:03 | NUR ---
PT STATES PAIN THIS MORNING IS 10, GAVE SCHEDULED PAIN MEDS PER APR. PT UPSET & STATES "IM HAVING ALL THIS PAIN ANDREA THEY WONT GIVE ME MY GABAPENTIN I ALWAYS TAKE AT HOME". PT ALSO COMPLAINING OF NAUSEA, CALLED HOSPITALIST DR ROMERO & NEW ORDER FOR SHILPI WOMACK, GAVE PER APR.
[2023-09-20 07:14] VITALS: BP_SYST 104
--- NOTE | 2023-09-20 08:00 | NUR ---
Pt. sitting up in chair. Pt. is A&OX3, assessment complete. Pt. with aspen collar on at this time. Pt. reports pain at a 10 on pain scale. Gave meds that are order. Pt. denies further needs.
[2023-09-20] MEDS ORDERED: Gabapentin 300 MG CAP PO SCH ×2 (13:00)
[2023-09-20] MEDS ORDERED: Phenylephrine/Mineral Oil/Petrolatum 57 GM TUBE RC PRN (13:00)
--- NOTE | 2023-09-20 14:41 | NUR ---
SW met with patient per his request to answer questions. Patient questioning if HH has been arranged and stating that [facility]'s contacting [facility]. SW informed patient that family meeting is scheduled for next week and these items will be discussed at that time. Patient agreeable to discuss in meeting.
[2023-09-20 18:15] VITALS: BP 108/63; PULSE 90; TEMP 97.4
[2023-09-20 19:00] VITALS: BP_SYST 108
--- NOTE | 2023-09-20 19:29 | NUR ---
RECEIVED CHANGE OF SHIFT REPORT FROM DAY SHIFT NURSE. PATIENT UP IN CHAIR, EXIT ALARM ON, CALL LIGHT WITHIN PATIENT'S REACH.
--- NOTE | 2023-09-20 20:00 | NUR ---
PATIENT UP WITH FWW/GAITBELT AND X1 STAFF ASST WITH AMB TO/FROM BATHROOM BACK TO RECLINER WITH NO REPORTED PROBLEMS OR CONCERNS AT THIS TIME. ON ROOM AIR. OBSERVED RIGHT HAND SUPERVISOR INSPECTION AND TESTING WEAKER THAN LEFT HAND SUPERVISOR INSPECTION AND TESTING. PATIENT ABLE TO PARTIALLY GRASP CUP HANDLES WITH USE OF LEFT HAND THUMB, ABLE TO DRINK INDEPENDENTLY FROM SIP CUP. OBSERVED PATIENT STATING HE CANNOT UNDO HOSP PANTS TIES TO HELP WITH PUSHING PANTS DOWN NOR PULL PANTS UP AFTER PERICARE DONE BY STAFF, STATES HE CANNOT USE HIS LEFT HAND "FOR ANYTHING". DENIES CHEST PAIN/SHORTNESS OF BREATHE/NAUSEA AT THIS TIME. SWALLOWS THIN LIQUIDS WITH NO REPORTED PROBLEMS. RESTING SITTING UP IN CHAIR AT THIS TIME.
--- NOTE | 2023-09-20 21:30 | NUR ---
SEE MAR FOR HEMORRHOIDAL OINTMENT APPLIED. OBSERVED NO BLOOD WITH HEMORRHOID AT THIS TIME. OBSERVED HEMORRHOID SWOLLEN AND PROTRUDING TO RECTUM.
--- NOTE | 2023-09-21 01:11 | NUR ---
OBSERVED BLOOD IN TOILET FROM HEMORRHOID, WITH SWELLING.
[2023-09-21 04:49] VITALS: BP 115/69; PULSE 54; TEMP 97.5
--- NOTE | 2023-09-21 06:07 | NUR ---
OBSERVED BRIGHT RED BLOOD WITH PERICARE AFTER TOILETING/STOOLING WITH APPLICATION OF HEMORRHOID OINTMENT.
--- NOTE | 2023-09-21 06:18 | NUR ---
PATIENT REPORTS NAUSEA, SEE MAR FOR ZOFRAN GIVEN. DENIES ANY OTHER COMPLAINTS AT THIS TIME.
[2023-09-21 07:00] VITALS: BP_SYST 115
--- NOTE | 2023-09-21 07:12 | NUR ---
CHANGE OF SHIFT REPORT GIVEN TO DAY SHIFT NURSEWILLOW.
--- NOTE | 2023-09-21 08:00 | NUR ---
PATIENT IS ALERT AND ORIENTATED. VSS. C/O PAIN AND PAIN MEDICATION GIVEN. NO C/O N/V. TESSA INTACT ON POSTERIOR NECK/UPPER BACK INCISION. ANTERIOR INCISION INTACT. TEGADERM COVERING INCISION. PATIENT IS UP WITH ASSIST X1 AND WALKER. ASPEN COLLAR WORN AT ALL TIMES WHEN OUT OF BED. FAMILY MEETING TODAY AT 1300. PATIENT AND FAMILY AWARE OF MEETING TIME. NO FURTHER COMPLAINTS AT THIS TIME. CALL LIGHT WITHIN REACH.
--- NOTE | 2023-09-21 11:30 | NUR ---
PT CALLED AND REPORTED SMALL SKIN TEAR THAT OCCURRED WHILE DOING PT. SKIN TEAR ON TOP OF R HAND. GAUZE AND TEGADERM APPLIED TO AREA.
--- NOTE | 2023-09-21 16:16 | NUR ---
General Internist And Physician Leader participated in patient family meeting which included patient's nieceSophia in person. LAUREL Tirado Director opened the meeting by explaining it's purpose followed up by report from PT/OT. Discharge date has been set for 09/24/23 and recommendation is for Home Health. SW presented [email or web address] list of HH agencies and patient's preferences are 1) [facility] of [facility] and 2) [facility].
[2023-09-21 17:47] VITALS: BP 98/60; PULSE 46; TEMP 97.4
--- NOTE | 2023-09-21 18:32 | NUR ---
PATIENT HAS SEEMED TO BE MORE DROWSY THIS AFTERNOON THAN USUAL. CONSTANTLY FALLING ASLEEP AND HAVING SOME CONFUSION WHEN AWAKENED.
[2023-09-21 19:00] VITALS: BP_SYST 117
--- NOTE | 2023-09-21 19:41 | NUR ---
RECEIVED CHANGE OF SHIFT REPORT FROM DAY SHIFT NURSE.
[2023-09-22 01:01] VITALS: BP 133/71; PULSE 62
[2023-09-22 01:07] VITALS: BP 117/71; PULSE 54
--- NOTE | 2023-09-22 01:07 | NUR ---
PATIENT UP TO BATHROOM, ATTEMPTED TO PASS STOOL AND URINE. OBSERVED LARGE AMOUNT DARK RED BLOOD WITH A FEW CLOTS SEEN BY NURSING IN TOILET. PATIENT REPORTED FEELING SOME LIGHTHEADED THAT RESOLVED AFTER SITTING BACK DOWN IN RECLINER FOR SLEEP. SPEECH CLEAR AND APPROPRIATE, DENIES CHEST PAIN/SHORTNESS OF BREATH. SEE Jamn FOR VS TAKEN. WILL INFORM ONCALL PROVIDER OF BLOOD IN STOOL.
--- NOTE | 2023-09-22 01:26 | NUR ---
INFORMED PROVIDER OF BLOOD IN STOOL, ORDERS GIVEN TO CBC IN AM AND PROTONIX 40MG PO DAILY TO START. WILL PROCESS ORDERS ACCORDINGLY.
--- NOTE | 2023-09-22 04:49 | NUR ---
PATIENT IS STILL HAVING BLOOD WITH STOOLS, DENIES DIZZINESS, CHEST PAIN/SHORTNESS OF BREATH. SKIN REMAINS WARM, AND FLAKEY PER PATIENT'S NORMAL. VOICES CONCERNS REGARDING BLOOD IN STOOL AND INFORMED THAT PROVIDER WAS INFORMED AND ORDERS GIVEN FOR LABS THIS MORNING AND PROTONIX. NO OTHER NEEDS REPORTED AT THIS TIME.
--- NOTE | 2023-09-22 06:26 | NUR ---
PATIENT REPORTS HAVING PAIN WITH HEMORRHOIDS, OBSERVED PASSED BLOOD WITH STOOLING, WITH URINE PASSED. DENIES CHEST PAIN/SHORTNESS OF BREATH/DIZZINESS AT THIS TIME. SPEECH IS CLEAR AND APPROPRIATE.
[2023-09-22 06:29] VITALS: BP 122/72; PULSE 90; TEMP 97.5
[2023-09-22 06:30] VITALS: BP_SYST 122
[2023-09-22 07:52] LABS: BASO # 0.1 K/mm3 (0.0-0.2); BASO % 1.2 % (0.0-2.0); EOS # 0.1 K/mm3 (0.0-0.7); EOS % 1.2 % (0.0-4.0); GRAN # 2.1 K/mm3 (1.4-6.5); HEMOGLOBIN 10.6 g/dl (13.5-18.0); LYMPH # 1.4 K/mm3 (1.2-3.4); MEAN CELL VOLUME 104 fl (80.0-100.0); MEAN CORPUSCULAR HEMOGLOBIN 34 pg (27-31); MEAN CORPUSCULAR HGB CONC 33 g/dl (33.0-37.0); MEAN PLATELET VOLUME 12.9 fl (7.4-10.4); MONO # 0.7 K/mm3 (0.1-0.6); MONO % 16.4 % (1.7-9.3); PLATELET COUNT 131 K/mm3 (130-400); REDCELL DISTRIBUTION WIDTH-CV 15.9 % (11.5-14.5)
[2023-09-22 08:04] LABS: HEMATOCRIT 32.2 % (42.0-52.0)
[2023-09-22] MEDS ORDERED: oxyCODONE 5 MG TAB PO PRN (10:30)
[2023-09-22] MEDS ORDERED: Gabapentin 300 MG CAP PO SCH (13:00)
--- NOTE | 2023-09-22 13:11 | NUR ---
Regional Account Executive spoke with Opal at [facility] who advised she received referral and will run patient's insurance. SW met with patient to provide update on HH before he went to group therapy.
[2023-09-22 17:37] VITALS: BP 93/51; PULSE 55; TEMP 97.1
[2023-09-22 19:00] VITALS: BP_SYST 93
--- NOTE | 2023-09-22 19:00 | NUR ---
RECEIVED CHANGE OF SHIFT REPORT FROM DAY SHIFT NURSE. PATIENT UP IN CHAIR, EXIT ALARM ON, CALL LIGHT WITHIN PATIENT'S REACH. DENIES ANY NEEDS AT THIS TIME.
--- NOTE | 2023-09-22 19:39 | NUR ---
PATIENT REQUESTED AND GIVEN PAIN MED, SEE MAR FOR MED GIVEN. PATIENT UP IN CHAIR, EXIT ALARM ON, CALL LIGHT WITHIN PATIENT'S REACH. NO OTHER MEEDS REPORTED AT THIS TIME.
--- NOTE | 2023-09-23 02:38 | NUR ---
REQUESTED AND GIVEN PAIN MEDS, SEE MAR FOR MEDS GIVEN.
[2023-09-23 05:48] VITALS: BP 128/64; PULSE 96; TEMP 97.5
[2023-09-23 07:00] VITALS: BP_SYST 128
--- NOTE | 2023-09-23 07:29 | NUR ---
CHANGE OF SHIFT REPORT GIVEN TO DAY SHIFT NURSEWILLOW.
--- NOTE | 2023-09-23 08:00 | NUR ---
PATIENT A&O. VSS. C/O PAIN 09/01 - PRN PAIN MEDICATION ADMINISTERED. NO C/O N/V. PATIENT AWARE OF THERAPY SCHEDULE FOR THE DAY. PROJECTED DISCHARGE DATE IS TOMORROW. PATIENT IS ASSIST X1 FOR TRANSFERS AND ADLS. PATIENT WALKS WITH WALKER AND GAIT BELT. NO FURTHER NEEDS AT THIS TIME. CALL LIGHT WITHIN REACH.
[2023-09-23] MEDS ORDERED: Gabapentin 300 MG CAP PO SCH (12:00)
--- NOTE | 2023-09-23 14:47 | NUR ---
PATIENT ALERT AND ORIENTED X4. VSS. PATIENT HERE FOR CERVICAL FUSION. ASPEN COLLAR ON. SEE SKIN ASSESSMENT. AM MEDS ADMINISTERED. NO FURTHER NEEDS. CALL LIGHT IN REACH.
--- NOTE | 2023-09-23 15:19 | NUR ---
Saddle Maker met with patient to review and provide copy of team conference notes. SW discussed with patient that the team feels be would benefit from additional rehab before returning home either at SNF or Swing Bed. SW provided [email or web address] list of SNF options and patient's preferences are 1) [facility] and 2) [facility]. SW explained to patient that we would need to secure an accepting facility, then secure insurance authorization and arrange transportation. SW spoke with patient's niece, Sophia to provide update and she also suggested [facility] [place]. SW faxed referrals to all three above facilities.
[2023-09-23 18:22] VITALS: BP 117/70; PULSE 98; TEMP 97.6
[2023-09-23 19:00] VITALS: BP_SYST 117
[2023-09-23] MEDS ORDERED: DULoxetine 60 MG CAP PO SCH (21:00)
--- NOTE | 2023-09-24 02:37 | NUR ---
NURSING SHIFT ASSESSMENT COMPLETED. THE PATIENT REPORTED PAIN 8/10 TO HIS BACK AND NECK. PAIN MEDICATIONS AND NEXT DOSE TIME REVIEWED. THE PATIENT WAS UPSET AND STATED THAT HE DID NO WANT TO STAY HERE BECUASE HE THOUGHT HE WAS NOT GETTING ENOUGH PAIN MEDICATION. THE MEDICATION, DOSE AND FREQUENCY WAS REVIEWED MULTIPLE TIMES. THE PATIENT CURSED A LOT DURING THIS CONVERSATION AND ASKED THIS NURSE TO LEAVE THE ROOM BECAUSE HE THOUGHT HE WAS NOT BEING HELPED. ALSO, THE PATIENT NEXT TO HIS ROOM SHOUTED OUT LOUDLY FOR HELP AND WHEN THIS AUTOMOBILE RACER WENT TO HELP THE PATIENT THIS PATIENT SHOUTED LOUDLY "SHUT THE FUCK UP." TO THE OTHER PATIENT REQUIRING ASSISTANCE. THE PATIENT DID THIS TWICE. ALSO DURING THIS ENCOUNTER THE PATIENT WAS ASSISTED TO THE BATHROOM AND HELPED WITH REPOSITIONING IN THE RECLINER. ALL PERSONAL BELONGINGS THAT THE PATIENT WANTED WERE WITHIN REACH TO INCLUDE THE CALL LIGHT. THE CHAIR ALARM WAS ON.
--- NOTE | 2023-09-24 05:00 | NUR ---
THE PATIENT HAD CALLED FOR THE NURSE ABOUT 04:15 ASKING FOR HIS 15 MG OF OXYCODONE. NEURONTIN 900 MG WAS ALSO ORDERED FOR 6 AM. AT 5 AM WHEN THE PATIENT COULD HAVE THE OXYCODONE HE WAS VERY SLEEPY, AROUSABLE BUT THE PATIENT WOULD GO RIGHT BACK TO SLEEP. THE PATIENT WAS EDUCATED REGARDING THE SIDE EFFECTS OF BOTH PREVIOUSLY MENTIONED MEDICATIONS. SOMNOLENCE WAS NOTED UPON ASSESSING THE PATIENT SO BOTH OF THOSE MEDICATIONS WERE NOT PROVIDED TO THE PATIENT AT THAT TIME.
[2023-09-24 05:37] VITALS: BP 133/83; PULSE 47; TEMP 97.4
[2023-09-24 07:00] VITALS: BP_SYST 133
[2023-09-24] MEDS ORDERED: Gabapentin 300 MG CAP PO SCH ×2 (09:00→09:13)
--- NOTE | 2023-09-24 09:00 | NUR ---
PATIENT A&O X4. VSS. PATIENT UP IN CHAIR EATING BREAKFAST. PRN PAIN MEDICATIONS GIVEN AT 0600. SHIFT ASSESSMENT COMPLETE AND MORNING MEDS GIVEN. NO C/O N/V. TEDS ON. TRANSFERS WITH ASSIST X1 WITH WALKER AND GAIT BELT. ASPEN COLLAR ON AT ALL TIMES WHEN OUT OF BED. NO FURTHER NEEDS AT THIS TIME. CALL LIGHT WITHIN REACH.
--- NOTE | 2023-09-24 10:44 | NUR ---
PATIENT ALERT AND ORIENTE X4. VSS. PATIENT HERE FOR CERVICAL SPINE FUSION, ASPEN COLLAR APPLIED. PATIENT APPEARS DROWSY BUT AROUSABLE. AM MEDS ADMINISTERED. PATIENT WAITING ON BREAKFAST TO ARRIVE. NO FURTHER NEEDS. CALL LIGHT IN REACH. CHAIR ALARM ON.
--- NOTE | 2023-09-24 15:52 | NUR ---
Blow Mold Machine Operator contacted [facility] and they are still reviewing referral. Patient's PCP will be in Thursday to give the final answer.
[2023-09-24 18:20] VITALS: BP 112/67; PULSE 72; TEMP 97.8
[2023-09-24 19:00] VITALS: BP_SYST 112
--- NOTE | 2023-09-24 21:00 | NUR ---
NURSING SHIFT ASSESSMENT COMPLETED. THE PATIENT WAS ALERT AND ORIENTED. THE PATIENT HAS ON HIS ASPEN COLLAR PER ORDERS SINCE HE IS IN THE RECLINER AND GETTING UP FREQUENTLY TO THE BATHROOM. THE PATIENT REPORTS 8/10 NECK AND BACK PAIN. PRN MEDICATION TO BE PROVIDED. NO OTHER NEEDS AT THIS TIME. CHAIR ALARM ON. PERSONAL BELONGINGS AND CALL LIGHT WITHIN REACH.
[2023-09-25 04:32] VITALS: BP 107/62; PULSE 58; TEMP 98.1
--- NOTE | 2023-09-25 07:22 | NUR ---
0700 - Pt awake, sitting up in chair. Pt states he is at a 10/10 pain this AM, no grimacing, guarding, moaning, or sweating noted. Pt relaxed, sitting up in chair. PRN oxycodone administered at this time. Pt is requesting to speak with physician during rounds, will inform physician upon arrival. No other concerns at this time. Call light within reach. Chair alarm on.
[2023-09-25 07:26] VITALS: BP_SYST 107
--- NOTE | 2023-09-25 09:43 | NUR ---
0809 - Pt awake, sitting up in bed. Pt states his pain has decreased since administration of PRN oxycodone. No concerns at this time. Chair alarm on. Call light within reach.
--- NOTE | 2023-09-25 17:03 | NUR ---
Pathologist Assistant contacted Pooja at [facility] and faxed clinical updates. Pooja stated she did not see any reason from her perspective to deny referral, however final decision will be up to the provider on Thursday. [facility]. MARIANN met with patient to provide update.
[2023-09-25 18:37] VITALS: BP 111/55; PULSE 84; TEMP 97.5
[2023-09-25 19:00] VITALS: BP_SYST 111
[2023-09-26 04:46] VITALS: BP 144/77; PULSE 53; TEMP 98.1
--- NOTE | 2023-09-26 06:49 | NUR ---
Reprt received. Pt resting comfortably in chair, asleep. Chair alarm on. Call light within reach. No concerns at this time.
[2023-09-26 07:22] VITALS: BP_SYST 144
--- NOTE | 2023-09-26 10:07 | NUR ---
0753- Pt awake, sitting up in chair. Pt complains of pain at this time, PRN oxycodone too early to give at this time. Scheduled medication given at this time. Chair alarm on. Call light within reach. No other concerns at this time.
[2023-09-26 16:54] VITALS: BP 100/62; PULSE 64; TEMP 97.5
[2023-09-26 19:17] VITALS: BP_SYST 100
[2023-09-27 05:02] VITALS: BP 127/75; PULSE 68; TEMP 97.6
[2023-09-27 07:36] VITALS: BP_SYST 127
--- NOTE | 2023-09-27 10:45 | NUR ---
PT RESTING IN CHAIR. PT ATE BREAKFAST TRAY WITH SET UP ASSIST USING MODIFIED FORK. PT DID COMPLAIN OF TIRING PARTWAY THROUGH THE MEAL, ENCOURAGED BY NURSE TO BRING FORK TO MOUTH WITH NURSE GETTING FOOD ON THE FORK. PT REQUESTED AND GIVEN PRN PAIN MEDICINE, PAIN OINTMENT APPLIED TO BACK OF NECK. PT DENIES OTHER NEEDS, CALL LT IN REACH.
--- NOTE | 2023-09-27 11:54 | NUR ---
SW received call from patient's niece Gail ([phone]) regarding patient's discharge. Gail was very anxious on the phone and explained that patient had called her to report that he is being transferred tomorrow and family has to drive him. SW reviewed chart and notes and determined that patient does not have an accepting facilty at this time. MARIANN explained to Gail that if he goes to [facility], family will have to transport, but if he goes to SNF that facility will transport. Gail explained that she is not available tomorrow due to having to go to [place] tomorrow for a medical appointment for herself. MARIANN explained that MARIANN Salmeron will call her tomorrow to discuss discharge plan. Discharge plan: SNF vs [facility]
--- NOTE | 2023-09-27 12:58 | NUR ---
PT'S NIECE CALLED, STATED PT SAID HE WAS GOING TO BE DISCHARGED ON THURSDAY AND THAT SHE WOULD HAVE TO GIVE HIM A RIDE. NIECE INFORMED BY THIS NURSE THAT THERE IS NO DOCUMENTATION TO SUPPORT THAT STATEMENT, BUT THAT SHE WOULD NEED TO CALL IN AM TO DISCUSS WITH SUGAR CHIPPER MACHINE OPERATOR. NIECE AGREEABLE TO PLAN, THEN STATES PT SAID HE WASN'T BEING GIVEN PAIN MEDICATIONS OR HIS HEART MEDS. MEDS REVIEWED WITH NIECE, AND THIS NURSE HAD PREVIOUSLY VERBALLY REVIEWED MEDS WITH PT. PT IS NOT RETAINING EDUCATION R/T MEDICATION, IS AGAIN EDUCATED BY THIS NURSE R/T SCHEDULE OF MEDS ET WHICH MEDS ARE BEING GIVEN. NIECE VERBALIZES THANKS, DENIED FURTHER QUESTIONS. PT C/O SCHEDULED NOON MED BEING GIVEN LATE AT 12:01. THEN WHEN NURSE BROUGHT SCHEDULED 1300 MED TO PT, HE STATED HE NEEDED HIS GABAPENTIN TOO. PT AGAIN EDUCATED THAT GABAPENTIN GIVEN AT 12:01. PT REASSURED MEDS ARE BEING GIVEN ACCORDING TO ORDERS. PT IN CHAIR, FEEDING SELF, CALL LT IN REACH.
--- NOTE | 2023-09-27 13:59 | NUR ---
THIS NURSE TO ROOM TO ADMINISTER PAIN MEDS THAT PATIENT REQUESTED BE BROUGHT AT 1400. PT SITTING IN CHAIR, EYES CLOSED, RESPIRATIONS EVEN AND UNLABORED, SNORING. THIS NURSE STATED, "ARE YOU ASLEEP?" PT REMAINS WITH EYES CLOSED AND SNORING. MEDS NOT GIVEN AT THIS TIME.
[2023-09-27 15:04] VITALS: BP 107/75; PULSE 76
--- NOTE | 2023-09-27 15:04 | NUR ---
PT ASSISTED IN BR BY PCT, WITH RN IN ROOM. PT C/O NO CREAM BEING APPLIED TO HEMORRHOIDS, THEN C/O CREAM BEING APPLIED TOO MUCH. PT C/O SHORTS BEING HIKED UP TOO HARD, THEN STATED, "WELL, ARE YOU GONNA JUST STAND THERE OR ARE YOU GONNA PULL THEM UP?" WHEN ASKED WHAT HE WANTS DONE, PT STATES, "I WANT YOU TO FUCKING HELP ME." PT'S PANTS ADJUSTED TO HIS SPECIFICATIONS BY THE PCT. PT ASSISTED TO CHAIR, CALL LT IN REACH. PT STATES, "YOU BETTER TAKE MY BLOOD PRESSURE" AND REPORTS PAIN 10/10. PT GIVEN SCHEDULED TYLENOL AND PRN NARCOTIC. PT B/P CHECKED 15 MINUTES LATER, IS WNL. PT DENIES OTHER NEEDS, IN CHAIR, FEET ELEVATED, PILLOWS SITUATED, CALL LT IN REACH.
--- NOTE | 2023-09-27 15:50 | NUR ---
PT RESTING IN CHAIR, EYES CLOSED, RESP EVEN AND UNLABORED. CALL LT IN REACH.
--- NOTE | 2023-09-27 17:04 | NUR ---
PT MORE PLEASANT WITH STAFF. AMBULATES TO BR AND BACK TO CHAIR WITHOUT GRIMACE. PT REPORTS PAIN 8/10. NURSE ASKED PT WHAT HIS LOWEST PAIN LEVEL ACHIEVED WAS, STATED IT WAS 7/10. NURSE EDUCATED PT ON PAIN SCALE, STATED THAT USUALLY 5/10 IS PAIN YOU CAN'T SLEEP THROUGH. ASKED PT IF HE FELT HIS PAIN WAS BAD ENOUGH HE COULDN'T SLEEP THROUGH IT, AND HE SAID, "NO, NOT AT ALL." PT ASKED WHEN NEXT ROXICODONE IS AVAILABLE, AND THIS NURSE EXPLAINED CLOSE TO 1900. PT VERBALIZED UNDERSTANDING, DENIES OTHER NEEDS, CALL LT IN REACH.
[2023-09-27 17:31] VITALS: BP 117/68; PULSE 62; TEMP 97.4
[2023-09-27 19:05] VITALS: BP_SYST 117
[2023-09-28 06:00] VITALS: BP 112/72; PULSE 54; TEMP 97.5
[2023-09-28 07:00] VITALS: BP_SYST 112
--- NOTE | 2023-09-28 08:00 | NUR ---
PATIENT IS A&O, OFTEN GRUMPY AND INPATIENT WITH STAFF. PATIENT IS CURRENTLY VERY FOCUSED ON DISCHARGE TO [facility] AND INSURANCE APPROVAL. PLAN IS TO DC TO [facility] TOMORROW. VSS. C/O PAIN IN NECK & CHRONIC BACK AT 12/02, GAVE PRN OXYCODONE WITH SCHEDULED BACLOFEN & NEURONTIN, SEE MAR. CERVICAL COLLAR INPLACE. NECK INCISIONS WELL APPROXIMATED, SEE SHIFT ASSESSMENT. BLE NOTED +3 EDEMA, SCALING/FLAKING. NEEDS ASSISTANCE WITH PILLS/MEALS. PT/OT/ST CONSULTED. HEAD TO TOE ASSESSMENT COMPLETE. NO OTHER NEEDS AT THIS TIME. CALL LIGHT IN REACH.
--- NOTE | 2023-09-28 15:01 | NUR ---
Switchboard Operator Supervisor received a message from Pooja at [facility] that she is awaiting prior auth from patient's insurance before presenting everything to Dr. Moreno. Pooja is hopeful they will get auth and can accept. MARIANN contacted [facility] and confirmed they've received all documentation and that auth is pending. MARIANN provided this update to patient, who stated he plans to call his insurance himself.
[2023-09-28 17:40] VITALS: BP 137/74; PULSE 85; TEMP 97.9
[2023-09-28 19:00] VITALS: BP_SYST 137
--- NOTE | 2023-09-28 19:31 | NUR ---
report received from susan hung. pt sitting in recliner with feet elevated. pt denies pain. brace on. fall precautions in place. call light in reach. all needs met at this time.
--- NOTE | 2023-09-28 21:00 | NUR ---
shift assessment complete, see documentation. pt tolerated hs meds well. pt reporting pain, prn oxycodone administered per orders. pt slightly angry and yelling at staff. pt requesting ensure shake. once shake was made, pt apologized to staff and seemed to settle. fall precautions in place. call light in reach. all needs met at this time.
--- NOTE | 2023-09-29 01:36 | NUR ---
pt reporting 8/10 back/neck pain, prn oxycodone administered per orders.
[2023-09-29 05:22] VITALS: BP 121/87; PULSE 60; TEMP 97.7
[2023-09-29 07:00] VITALS: BP_SYST 121
--- NOTE | 2023-09-29 10:35 | NUR ---
PT UP IN RECLINER FOR BREAKFAST. PT HAS BEEN IN CONTACT WITH INSURANCE AND [facility]. SOCIAL SERVICE AWARE AND WORKING WITH INSURANCE TO FACILITATE TRANSFER IF ABLE.
--- NOTE | 2023-09-29 15:48 | NUR ---
General Magistrate was contacted by [facility] and a peer to peer was requested. MARIANN provided peer to peer information to Dr. Montes who completed the requested call. MARIANN was then notified that patient was denied SNF/SB and that the reviewing medical officer psychiatry for [facility] felt that patient's needs could be met at a lower level of care (home with ). MARIANN met with patient to provide update and he expressed frustration with his insurance's decision. MARIANN validated patient's feelings on this and advised he has approved days on the rehab unit until Thursday. Patient is agreeable to stay until Thursday and wants to focus on "his arms". SW offered a home assessment to patient, however patient stated his family works and would not be able to transport him for this. MARIANN contacted [facility] and faxed clinical updates. Opal with [facility] stated she would start working to verify patient's benefits and follow up with on acceptance. MARIANN contacted patient's niece, Sophia to provide the above update.
[2023-09-29 18:06] VITALS: BP 128/75; PULSE 80; TEMP 98.1
[2023-09-29 19:00] VITALS: BP_SYST 128
--- NOTE | 2023-09-29 19:13 | NUR ---
report received from lizzeth hung. pt sitting in recliner watching tv. aspen collar remains in place. pt denies pain. fall precautions in place. call light in reach. all needs met at this time.
--- NOTE | 2023-09-29 21:20 | NUR ---
shift assessment complete, see documentation. pt tolerated hs meds well. pt rating back/neck pain 09/01. prn oxycodone administered per orders. fall precautions in place. call light in reach. all needs met at this time.
--- NOTE | 2023-09-30 01:26 | NUR ---
pt reports 8/10 neck/back pain, prn oxycodone administered per orders.
[2023-09-30 05:23] VITALS: BP 105/65; PULSE 56; TEMP 97.5
--- NOTE | 2023-09-30 05:34 | NUR ---
pt reporting increased neck/back pain rated 9/10, prn oxycodone administered per orders.
[2023-09-30 06:57] VITALS: BP_SYST 105
--- NOTE | 2023-09-30 08:42 | NUR ---
SHIFT ASSESSMENT COMPLETE. VSS. PATIENT AWAKE AND RETURNING FROM PT AND GETTING READY FOR OT. ALL MORNING MEDS GIVEN ORDERED. PATIENT STATES PAIN 9/10 PAIN MEDS GIVEN ORDERED. PATIENT HAS NO OTHER NEEDS AT THIS TIME. FALL PRECAUTIONS IN PLACE AND CALL LIGHT IN REACH.
--- NOTE | 2023-09-30 15:06 | NUR ---
Bicycle Mechanic met with patient to review and provide copy of team conference notes. Patient advised that he worked on stairs today and did okay. SW advised patient that he has days until Thursday, however a request would be put in for more days. SW advised it would be up to his insurance's determination how long he can stay. Patient verbalized understanding.
[2023-09-30] MEDS ORDERED: Baclofen 10 MG TAB PO SCH (17:00)
[2023-09-30 17:45] VITALS: BP 99/62; PULSE 66; TEMP 98.5
[2023-09-30 19:00] VITALS: BP_SYST 99
--- NOTE | 2023-09-30 19:04 | NUR ---
report received from milvia hung. pt sitting in recliner watching tv. pt reports slight neck/back pain but states it is bearable after PRN given on previous shift. fall precautions in place. call light in reach. all needs met at this time.
--- NOTE | 2023-09-30 20:55 | NUR ---
shift assessment complete, see documentation. pt tolerated hs meds well. pt reports slight neck/back pain. fall precautions in place. call light in reach. all needs met at this time.
[2023-09-30 20:56] VITALS: BP 105/60
--- NOTE | 2023-09-30 22:04 | NUR ---
pt reporting increased neck/back pain rated 8/10, prn oxycodone administered per orders.
--- NOTE | 2023-10-01 02:36 | NUR ---
pt reporting 7/10 neck/back pain, prn oxycodone administered per orders.
[2023-10-01 05:40] VITALS: BP 139/74; PULSE 92; TEMP 97.4
[2023-10-01 07:00] VITALS: BP_SYST 139
[2023-10-01] MEDS ORDERED: Furosemide 40 MG TAB PO ONE (09:00)
--- NOTE | 2023-10-01 10:36 | NUR ---
SHIFT ASSESSMENT COMPLETE. VSS. PATIENT UP TO RECLINER EATING BREAKFAST. ALL MORNING MEDS GIVEN ORDERED. PATIENT REPORTS PAIN 9/10 PAIM MEDS GIVEN ORDERED. PATIENT HAS NO OTHER NEEDS AT THIS TIME. CALL LIGHT IN REACH
--- NOTE | 2023-10-01 15:39 | NUR ---
Day Haul Youth Supervisor met with patient to provide an update. SW advised more days have been requested and this is pending.
[2023-10-01 18:00] VITALS: BP 108/74; PULSE 54; TEMP 98.3
[2023-10-01 18:55] VITALS: BP_SYST 108
--- NOTE | 2023-10-01 21:00 | NUR ---
Patient sitting in chair. Assissted patient to bathroom and back to bed. Rates pain at 8/10 at this time, scheduled pain meds given. Needs met. Assessment complete. Call light and personal items in reach. Bed in low position and chair alarm on.
[2023-10-01 21:01] VITALS: PULSE 54
[2023-10-02 05:31] VITALS: BP 134/63; PULSE 55; TEMP 97.8
[2023-10-02 07:00] VITALS: BP_SYST 134
--- NOTE | 2023-10-02 07:00 | NUR ---
PATIENT AWAKE AND ALERT, RESTING IN RECLINER.CALL LIGHT WITHIN REACH. FALL PRECAUTIONS IN PLACE. CHAIR ALARM ON.
--- NOTE | 2023-10-02 14:01 | NUR ---
PATIENT AWAKE, RESTING IN RECLINER. PATIENT DENIES ANY NEEDS OR COMPLAINTS AT THIS TIME. CALL LIGHT WITHIN REACH. FALL PRECAUTIONS IN PLACE.
--- NOTE | 2023-10-02 14:24 | NUR ---
Epidemiology Investigator met with patient twice today while he was on the phone with customer service representatives for [facility]. SW reiterated to patient that [facility] denied [facility], which is why he remains here and that we are trying to request more days from [facility] so he can continue therapy here since swing bed was denied. Patient is very frustrated by this, understandably. On the second call, the underwriting service representative from [facility] added Pojoa, Logistics Clerk from the [facility] onto the call and asked her why this was denied. The [facility] underwriting service representative did not understand that Pooja works for the [facility], not [facility]. SW then received a message from that same [facility] underwriting service representative where she stated it was patient's [employer] Medicaid that denied care, which MARIANN does not think is accurate as [facility] does not manage [employer] prior authorizations and per this [facility]'s financial counseling team, patient has [employer] Medicaid.
[2023-10-02] MEDS ORDERED: Furosemide 40 MG TAB PO SCH (15:00)
[2023-10-02 16:51] VITALS: BP 99/54; PULSE 53; TEMP 98.3
[2023-10-02 18:50] VITALS: BP_SYST 99
--- NOTE | 2023-10-02 19:40 | NUR ---
Patient resting in chair. Rates pain at 9/10, scheduled pain meds given. Needs met at this time. Assessment complete. Call light and personal items in reach. Bed in low position and chair alarm on.
--- NOTE | 2023-10-03 05:50 | NUR ---
Patient resting in chiar. Rates his pain at 10/10, prn and scheduled pain meds given. Assissted patient to bathroom and back to bed. No events over night. Call light and personal items in reach. Bed in low position and chair alarm on.
[2023-10-03 05:58] VITALS: BP 116/77; PULSE 57; TEMP 97.5
--- NOTE | 2023-10-03 09:00 | NUR ---
PATIENT IS A&O AND OFTEN GRUMPY TOWARD STAFF. PATIENT THOUGHT HE SHOULD HAVE HAD HIS PAIN MEDS EARLIER, NURSING CONFIRMED THE LAST NARCOTIC SCAN AND THE Q4H PRN ORDER, PATIENT VERBALIZED UNDERSTANDING. PRN OXYCODONE WAS GIVEN FOR PAIN AT EARLIEST TIME AVAILABLE. AM MEDS GIVEN. NECK INCISIONS ARE WELL APPROXIMATED AND MATT. C-COLLAR INPLACE. PATIENT SITTING UP IN BEDSIDE CHAIR WITH BREAKFAST TRAY. NO C/O N/V. TOLERATING PO WELL. VOIDING SUFFICENT AMOUNTS. 1 ASSIST WITH WALKER, UNSTEADY AT TIMES AND HIGH FALL RISK. HEAD TO TOE ASSESSMENT COMPLETE. NO OTHER NEEDS AT THIS TIME. CALL LIGHT IN REACH. CHAIR ALARM ON.
[2023-10-03 14:45] VITALS: TEMP 97.9
--- NOTE | 2023-10-03 15:10 | NUR ---
PATIENT SET OFF BED ALARM AND WAS FOUND UP AMBULATING AROUND IN ROOM WITHOUT HIS NECK BRACE ON. PCT FOUND PATIENT AND CAME TO FIND RN. PATIENT STILL UP AMBULATING IN ROOM WHEN RN ENTERED ROOM, HIGH FALL RISK. PATIENT UPSET BECAUSE HE DROPPED HIS CALL LIGHT ON THE FLOOR AND DIDN'T REALIZE THERE IS A NURSE CALL BUTTON ON THE BEDRAILES WELL. ASSISTED PATIENT TO PUT NECK BRACE BACK ON. PATIENT NOW WANTING TO USE BATHROOM, ASSISTED WITH 1 ASSIST AND WALKER. PATIENT USES A LOT OF CURSE WORDS WHEN TALKING TO STAFF AND IS OVERALL EASILY UPSET WITH A SHORT TEMPER.
[2023-10-03 19:00] VITALS: BP_SYST 116
--- NOTE | 2023-10-04 03:09 | NUR ---
PT REQUESTING MORE LAXATIVES, STATES HE IS TIRED OF THE PAIN HE IS HAVING WHEN GOING TO THE RESTROOM. PT STATES HIS RECTUM IS VERY PAINFUL, FEELS LIKE HE CAN'T "PUSH OUT" THE BM. PT DOES HAVE A LARGE SWOLLEN HEMORRHOID THAT WE ARE APPLYING OINTMENT WITH EACH BM, BUT STATES THIS IS NOT HELPING WITH THE PAIN. PT HAS PRN COLACE ORDERED, DOES NOT WANT SUPPOSITORY AT THIS TIME. AM DOSE OF MIRALAX AND PRN COLACE GIVEN, OXY GIVEN WELL.
[2023-10-04 05:34] VITALS: BP 142/85; PULSE 65; TEMP 98.4
--- NOTE | 2023-10-04 08:00 | NUR ---
PATIENT IS A&O AND IN A SUPRISINGLY GOOD MOOD THIS AM. PATIENT WAS NICE TO STAFF AND EVEN THANKED RN SEVERAL TIMES. PATIENT UP IN BEDSIDE CHAIR, ASSISTED TO BE SET UP FOR BREAKFAST. AM MEDS GIVEN. C-COLLAR INPLACE. HEAD TO TOE ASSESSMENT COMPLETE, SEE SHIFT ASSESSMENT. CHAIR ALARM ON. CALL LIGHT IN REACH.
[2023-10-04 18:00] VITALS: BP 95/55; PULSE 85; TEMP 98.2
[2023-10-04 18:56] VITALS: BP_SYST 95
--- NOTE | 2023-10-04 20:26 | NUR ---
PT GIVEN HS MEDS INCLUDING OXYCODONE 15MG PO. PT CAN BE SHORT WITH STAFF. HAS ASPEN COLLAR ON, REPORTS HE SLEEPS IN THE RECLINER AT NIGHT. HAS BLE SWELLING WITH SCALING NOTED. HAS HAD 2 SMALL SOFT STOOLS, DID TAKE HIS MIRALAX AND SENNA TONIGHT PER HIS REQUEST.
--- NOTE | 2023-10-05 00:09 | NUR ---
PT SITTING IN RECLINER CHAIR, SLIGHTLY DROWSY. MEDICATED WITH SCHEDULED GABAPENTIN AND PRN OXYCODONE. PT VERY PLEASANT AND COOPERATIVE AT THIS TIME.
--- NOTE | 2023-10-05 04:18 | NUR ---
Pt asking for pain meds, PRN Oxycodone 15mg po given. Pt reports swollen legs and wants his Farxiga resumed to help his legs.
[2023-10-05 04:56] VITALS: BP 97/62; PULSE 60; TEMP 97.7
--- NOTE | 2023-10-05 04:59 | NUR ---
PT ASKING FOR HIS BACLOFEN, STATES "I'M CRAMPING UP". REMINDED OF PT SCHEDULED TIMES. PT STATES HE JUST WANTS TO GO HOME.
[2023-10-05 07:00] VITALS: BP_SYST 97
[2023-10-05 08:16] VITALS: BP 109/64
--- NOTE | 2023-10-05 08:19 | NUR ---
PATIENT ALERT AND ORIENTED BUT VERY DROWSY. PATIENT SLEPT IN CHAIR OVERNIGHT PER THEIR REQUEST. PATIENT REPORTS PAIN 10/10, REQUESTS PAIN MEDICATION. REPEAT BP REVEALED A SLIGHTLY HIGHER NUMBER, HELD LASIX DUE TO SOFT PRESSURE. PATTIENT AWARE OF POSSIBLE NEED TO HOLD PAIN MEDICATION IF BP CONTINUES TO RUN SOFT. AM MEDS ADMINISTERED. BREAKFAST LATE IT WAS NOT ORDERED YESTERDAY. ORDERED BREAKFAST FOR PATIENT, PER PATIENT REQUEST. ASSESSMENT PERFORMED. WAITING ON THERAPY. PATIENT IN CHAIR, ALARM ON. CALL LIGHT IN REACH. NO FURTHER NEEDS.
--- NOTE | 2023-10-05 14:40 | NUR ---
SW met with patient to introduce self. Discussed patient continuing rehab at [facility] and will readdress progress on Thursday at team meeting. Patient is accepted to [facility]. Patient stated "I think they're kicking me out tomorrow. But I can wip my butt now." Patient informed that discharge date uncertain at this time.
[2023-10-05] MEDS ORDERED: Cyclobenzaprine 10 MG TAB PO PRN (15:15)
--- NOTE | 2023-10-05 16:38 | NUR ---
SW contacted by staff stating that "patient just blew up and wants to talk to SW". Staff reported that patient is demaning to leave and go home. SW and IPR Director Carolina met with patient in room. Patient voicing multiple complaints including but not limited to: nurses and aides not responding to call light fast enough when he has to use bathroom, legs swollen and not getting appropriate medications, being lied to about his medicine, not seeing financial counselor to complete paperwork after having his schedule changed. SW explained to patient that staff reported him to be loud and cussing at them which is abusive language and not tolerated. Patient stated that he wasn't cussing staff but was "just cussing, that's how I talk". Patient argumentative with SW and kept talking about the same complaints throughout lengthy meeting. Director Figueroa confronted patient and asked what he wanted to do: stay and act appropriately or discharge. Patient stated "I guess I'll stay, but they better do better." Director checking with staff to determine why pateint's schedule was changed for today. SW will follow up with patient tomorrow.
[2023-10-05 17:07] VITALS: BP 128/80; PULSE 59; TEMP 98.3
--- NOTE | 2023-10-05 18:30 | NUR ---
report received from shyla hung. pt sitting in recliner watching tv. pt reporting 3/10 neck/back pain but stating prn given by previous shift is helping. pt assisted to bathroom, tolerated well. fall precautions in place. call light in reach. all needs met at this time.
[2023-10-05 19:00] VITALS: BP_SYST 128
--- NOTE | 2023-10-05 20:35 | NUR ---
shift assessment complete, see documentation. pt resting in recliner watching tv. fall precautions in place. call light in reach. all needs met at this time.
--- NOTE | 2023-10-06 02:10 | NUR ---
pt reporting 10/10 neck/back pain, prn oxycodone administered per orders.
[2023-10-06 06:05] VITALS: BP 107/68; PULSE 72; TEMP 97.7
--- NOTE | 2023-10-06 06:05 | NUR ---
pt reporting 8/10 neck/back pain, prn oxycodone administered per orders.
[2023-10-06 07:04] VITALS: BP_SYST 107
[2023-10-06 07:31] LABS: HEMOGLOBIN 10.8 g/dl (13.5-18.0); MEAN CELL VOLUME 99 fl (80.0-100.0); MEAN CORPUSCULAR HEMOGLOBIN 32 pg (27-31); MEAN CORPUSCULAR HGB CONC 32 g/dl (33.0-37.0); MEAN PLATELET VOLUME 12.2 fl (7.4-10.4); PLATELET COUNT 134 K/mm3 (130-400); REDCELL DISTRIBUTION WIDTH-CV 16.1 % (11.5-14.5)
[2023-10-06 07:35] LABS: HEMATOCRIT 33.5 % (42.0-52.0)
[2023-10-06 07:59] LABS: CALCIUM 8.5 mg/dL (8.4-10.2); CREATININE, serum 0.93 mg/dL (0.72-1.25); POTASSIUM 4.4 mEq/L (3.5-4.5)
[2023-10-06 08:09] LABS: BAND 1 % (0-10); EOSINOPHIL 6 % (0-4); LYMPHOCYTE 41 % (20.0-51.0); NEUTROPHILS 30 % (42.0-75.2)
[2023-10-06 08:10] LABS: ANISOCYTOSIS 1+; HYPOCHROMIA 1+; PLATELET ESTIMATE NORMAL (NORMAL)
--- NOTE | 2023-10-06 09:19 | NUR ---
PATIENT ALERT AND ORIENTED X4 BUT DROWSY. PATIENT REPORTS PAIN 7/10, PRN PAIN MEDS NOT DUE. AM MEDS ADMINISTERED. PATIENT WAITING ON BREAKFAST AND THERAPY. CALL LIGHT IN REACH. CHAIR ALARM ON.
--- NOTE | 2023-10-06 13:02 | NUR ---
SW received call from FARHAN Patton at [facility] stating that insurance is willing to consider rehab for patient. Pooja asked for 48 hours of clinicals to be faxed to her to submit to [facility] Medicare for authorization. Clinicals faxed for review. Director Candida notified of request. Discharge plan: [facility] vs [facility]
--- NOTE | 2023-10-06 16:09 | NUR ---
SW received call from patient requesting SW visit in room. SW arrived in room and patient stated immediately, "I want to go." SW explained re-eval for authorization from insurance company and reminded patient that his insurance has approved him to stay in [facility] until Thursday. Patient voicing frustration with staff and his opinion of quality of care and stated "I'm done. I'm leaving." Patient questioned about transportation and he stated he'd call an Uber. Director Candida notified of patient's decision. She is to contact Dr. Montes. MARIANN received another call from patient demanding his papers. MARIANN informed patient that we are waiting on doctor to investigative writer discharge orders. Patient accused SW of not contacting doctor until late in the day so he can't get what he needs. MARIANN informed patient that everything is being done and we have to wait on doctor. Patient stated "my ride will be here in 40 minutes." He shared that his nephew is his ride. Director Tirado contacted to update. She stated that doctor would be in to see patient after clinic. If patient chooses to leave before that he would be leaving AMA. MARIANN went to inform patient of this information and Doctor Montes had just arrived to unit to see patient.
[2023-10-06] MEDS ORDERED: LIORESAL 1010 MG/TAB PO (16:32)
[2023-10-06] MEDS ORDERED: NARCAN4 MG NS (16:33)
[2023-10-06] MEDS ORDERED: CYMBALTA 60MG60 MG PO (16:34)
[2023-10-06] MEDS ORDERED: MIRALAX238G PO (16:34)
[2023-10-06] MEDS ORDERED: SENOKOT S 50 MG1 TAB PO (16:34)
[2023-10-06] MEDS ORDERED: PROTONIX 40MG T40 MG PO (16:35)
[2023-10-06] MEDS ORDERED: LIDODERM 5% PATC1 EA TP (16:36)
[2023-10-06] MEDS ORDERED: DAZIDOX10 MG PO (16:37)
--- NOTE | 2023-10-06 17:48 | NUR ---
DISCHARGE INSTRUCTIONS PROVIDED TO PATIENT AND NEPHEW. FOLLOW UP APPOINTMENTS DISCUSSED. MEDICATIONS REVIEWED. PATIENT BELONGINGS GATHERED. PATIENT AND NEPHEW DENY ANY QUESTIONS OR CONERNS. PATIENT ESCORTED OUT WITH BELONGINGS.
== END 2023-10-06 18:05 | disposition home health service (06) | DRG 552 ==
PROVIDERS: Internal Medicine; Physician Assistant; ADMIT Physical Medicine & Rehabilitation Sports Medicine
DX: M50.00 Cervical disc disorder with myelopathy, unspecified cervical region (principal); I50.30 Unspecified diastolic (congestive) heart failure; R26.89 Other abnormalities of gait and mobility; R29.898 Other symptoms and signs involving the musculoskeletal system; E11.40 Type 2 diabetes mellitus with diabetic neuropathy, unspecified; K59.00 Constipation, unspecified; R20.8 Other disturbances of skin sensation; D64.9 Anemia, unspecified; D69.6 Thrombocytopenia, unspecified; Z86.19 Personal history of other infectious and parasitic diseases; Z79.899 Other long term (current) drug therapy; Z74.09 Other reduced mobility; Z98.1 Arthrodesis status; K64.9 Unspecified hemorrhoids; G47.00 Insomnia, unspecified
CPT/HCPCS: A9270; A9284; J1644; J1650